=== PATIENT | male | born 1945 | race Caucasian/White ===

== ENCOUNTER 2023-02-21 12:46 | Emergency (ER) | payer MEDICARE, BC, OTHER ==
[~2023-02-21] VITALS: Ht 190.5 cm; Wt 83.7 kg
[2023-02-21 12:53] VITALS: O2SAT 98
[2023-02-21] MEDS ORDERED: DIPHTH/TETANUS/ACEL. PERTUSSIS 0.5 ML SYR IM ONE (13:00)
[2023-02-21] MEDS ORDERED: TETANUS/DIPHTHERIA TOX ADULT 0.5 ML SYR ONE (13:08)
[2023-02-21] MEDS ORDERED: OZEMPIC0.25 MG/0. SC (13:11)
[2023-02-21] MEDS ORDERED: MYSOLINE50 MG (13:11)
[2023-02-21] MEDS ORDERED: LIPITOR10 MG PO (13:11)
[2023-02-21] MEDS ORDERED: ELIQUIS5 MG PO (13:11)
[2023-02-21] MEDS ORDERED: LANTUS 3ML100 UNITS/ (13:11)
[2023-02-21] MEDS ORDERED: ATIVAN0.5 MG PO (13:11)
[2023-02-21] MEDS ORDERED: FUROSEMIDE40 MG PO (13:11)
[2023-02-21] MEDS ORDERED: SOTALOL80 MG PO (13:11)
[2023-02-21] MEDS ORDERED: LEVOTHYROXINE50 MCG PO (13:11)
== END 2023-02-21 14:34 | disposition home or self-care (01) ==
LOC: FSED 12:59
DX: S00.01XA Abrasion of scalp, initial encounter (principal); R51.9 Headache, unspecified; M54.6 Pain in thoracic spine; W17.89XA Other fall from one level to another, initial encounter; Y92.89 Other specified places as the place of occurrence of the external cause; I10 Essential (primary) hypertension; E11.9 Type 2 diabetes mellitus without complications; I48.91 Unspecified atrial fibrillation; E03.9 Hypothyroidism, unspecified; F41.9 Anxiety disorder, unspecified; E78.5 Hyperlipidemia, unspecified; G89.29 Other chronic pain; Z95.810 Presence of automatic (implantable) cardiac defibrillator; Z98.84 Bariatric surgery status
CPT/HCPCS: 70450; 71250; 72125; 90471; 90714; 96372; 99283